=== PATIENT | male | born 1945 | race Caucasian/White ===

== ENCOUNTER 2017-12-25 11:00 | Emergency (ER) | payer OTHER ==
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
[2017-12-25 11:43] LABS: PLATELET COUNT 263 10^3/uL (150-400)
--- NOTE | 2017-12-25 11:47 | CPEKG ---
Test Reason : OPEN Blood Pressure : / mmHG Vent. Rate : 060 BPM Atrial Rate : 060 BPM P-R Int : 145 ms QRS Dur : 096 ms QT Int : 411 ms P-R-T Axes : 064 015 034 degrees QTc Int : 411 ms Sinus rhythm Abnormal R-wave progression, early transition Confirmed by Abdiaziz Pruett ([id number]) on 12/25/2017 11:46:44 AM Referred By: Confirmed By:Abdiaziz Pruett
[2017-12-25 13:18] VITALS: BP 147/74
== END 2017-12-25 13:18 | disposition home or self-care (01) ==
DX: R07.9 Chest pain, unspecified (principal); Z87.891 Personal history of nicotine dependence
CPT/HCPCS: 84484-PO